=== PATIENT | male | born 1990 | race Caucasian/White ===

== ENCOUNTER 2023-07-07 13:50 | Outpatient (AMB) | payer OTHER, SELFPAY ==
--- NOTE | 2023-07-07 14:42 | MHC.OFFWIV ---
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 Patient Tobacco Use Status: Never used Tobacco Allergies No Known Allergies Allergy (Verified 07/07/23 15:26) Medication List - Last Reconciled 07/07/23 by Gordon Bonds MD No Known Home Meds Do you need a note to return to daycare/school/sports/work: Yes HPI TEAM PRIMARY CARE PHYSICIAN ?Ear Infection (left) HPI Details 32-year-old male presents to the office for a sick visit. 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 He is reporting symptoms of year pain and difficulty hearing especially in the left ear. He believes he could have a cold. Occasional postnasal drip. PFSH Social History Patient Tobacco Use Status: Never used Tobacco Physical Exam Vital Signs: Last Vital Signs Temp 97.4 F 07/07/23 14:43 Pulse 72 07/07/23 14:43 BP 120/72 07/07/23 14:43 Pulse Ox 98 07/07/23 14:43 Oxygen Delivery Method Room Air 07/07/23 14:43 Const General: cooperative and healthy appearing Nutritional Appearance: well nourished Orientation/consciousness: patient oriented x3 Limitations: no limitations HEENT Other: Left ear: Wax, tympanic membrane not visualized. Right ear: wax. Tympanic membrane visualized. Head: Yes normal to inspection Eyes General: appearance normal, both eyes and all related structures Neck Neck: Yes normal visual inspection Chest Chest palpation & inspection: normal palpation of entire chest wall Resp Effort & Inspection: normal respiratory effort Neuro General: patient oriented x3 Office Procedures Cerumen Removal Removal: irrigation and otoscope w/curette Notes: patient tolerated procedure well [id number] Wax Removal by Spoon/Curette Assessment & Plan Assessment & Plan (1) Upper respiratory tract infection: Code(s): J06.9 - Acute upper respiratory infection, unspecified Plan: Viral upper respiratory tract infection. No antibiotic needed. (2) Impacted cerumen of left ear: Code(s): H61.22 - Impacted cerumen, left ear Plan: The ears were cleaned and patient tolerated the procedure well. Orders: Orders AMB Cerumen Removal Today H61.22 - Impacted cerumen, left ear Coding Level of Care Code Est Pt Level 3 (47146) Diagnoses Upper respiratory tract infection J06.9 Impacted cerumen of left ear H61.22 CPT Codes Office Procedure - CPT: 46216-Tlh Wax Removal by Spoon/Curette ([id number])
[2023-07-07 14:43] VITALS: BP 120/72; PULSE 72; TEMP 36.3; O2SAT 98
== END 2023-07-07 16:51 | disposition home or self-care (01) ==
PROVIDERS: Visit Provider Internal Medicine
DX: J06.9 Acute upper respiratory infection, unspecified (principal); H61.22 Impacted cerumen, left ear
CPT/HCPCS: 69210; 99213